=== PATIENT | male | born 1955 | race Caucasian/White ===

== ENCOUNTER 2018-05-12 11:12 | Inpatient (IN) ==
--- NOTE | 2018-05-12 11:41 | Emergency Department Note ---
Disposition Clinical Impression: Abdominal pain, Dilation of biliary tract Disposition: Admitted As Inpatient Condition: Good General Adult HPI - General Chief complaint: ED Abdominal Pain Stated complaint: abd pain Time Seen by Provider: 05/12/18 11:24 Source: patient Limitations: no limitations Nursing Notes Reviewed: Yes Vital Signs Reviewed: Yes - History of Present Illness Pain Scale: 0 - Related Data Home Medications Medication Instructions Recorded Confirmed Aspirin Enteric Coated [Aspirin EC] 81 mg PO DAILY 05/12/18 05/12/18 Atorvastatin Calcium [Lipitor] 20 mg PO HS 05/12/18 05/12/18 Garlic [Odorless Garlic] 1,250 mg PO DAILY 05/12/18 05/12/18 Lisinopril [Zestril] 5 mg PO DAILY 05/12/18 05/12/18 [place]-3/Dha/Epa/Fish Oil [Fish Oil 1 cap PO DAILY 05/12/18 05/12/18 1,000 mg Softgel] Tadalafil [Cialis] 5 mg PO DAILY 05/12/18 05/12/18 Tamsulosin [Flomax] 0.4 mg PO DAILY 05/12/18 05/12/18 Ubidecarenone [Coq10] 50 mg PO DAILY 05/12/18 05/12/18 Allergies Allergy/AdvReac Type Severity Reaction Status Date / Time No Known Allergies Allergy Verified 05/12/18 11:17 Past Medical History - Past Medical History Medical history: Reports: diabetes, hypertension Psychiatric history: Reports: no psych history - Social History Smoking Status: Former smoker Smokeless Tobacco Status: No Alcohol use: Reports: occasionally Drug use: Reports: none Physical Exam - General Limitations: no limitations General appearance: alert, in no apparent distress Course Vital Signs Temperature 98.1 F 05/12/18 11:16 Pulse Rate 80 05/12/18 11:16 Respiratory Rate 18 05/12/18 11:16 Blood Pressure 144/75 05/12/18 11:16 O2 Sat by Pulse Oximetry 96 05/12/18 11:16 Temperature 97.8 F 05/12/18 14:41 Pulse Rate 78 05/12/18 14:41 Respiratory Rate 16 05/12/18 14:41 Blood Pressure 130/71 05/12/18 14:41 O2 Sat by Pulse Oximetry 95 05/12/18 14:41 Oxygen Delivery Oxygen Delivery Room Air Medical Decision Making - MDM Narrative Medical decision making narrative: 1135 hrs.: Patient has an EKG showing a sinus rhythm with a rate of 82, QRS is 97, QTc is 422, no signs of acute ischemia and no ectopy no old EKG to compare this to. Abdomen/Pelvis CT 05/12/18 12:14 IMPRESSION: Bile duct dilatation beginning at the level of the head of the pancreas. Recommend correlation with any clinical findings of biliary obstruction. MRCP may be helpful for further characterization D/ / Sudhir Gray MD / Sudhir Gray MD Interpreting Provider: Sudhir Gray MD 1315 hrs. we will speak to gastroenterology about their preference for MRCP or ultrasound. And then hospitalist for admission. 1330 hrs.: Spoke with Dr. Cramer who is on for GI. He wanted an MR with contrast to rule out pancreatic mass. We will bring him into the hospital he will consult hospitalist admit. - Lab Data Result diagrams: 05/12/18 11:47 05/12/18 11:47 Lab Results 05/12/18 05/12/18 05/12/18 Range/Units 11:23 11:47 11:47 WBC 5.4 (4.3-11.1) K/mcL RBC 4.83 (4.19-5.50) M/mcL Hgb 13.4 (12.9-16.9) g/dL Hct 40.1 (37.5-50.1) % MCV 83.0 (83.0-100.0) fL MCH 27.7 L (28.0-33.3) pg MCHC 33.4 (31.6-35.5) g/dL RDW 13.9 (11.5-14.5) % Plt Count 193 (140-400) K/mcL MPV 9.9 (9.4-12.4) fL Immature Gran % 0.2 (0-4) % Seg Neutrophils % 58.1 % Lymphocytes % 25.0 % Monocytes % 12.3 % Eosinophils % 3.5 % Basophils % 0.9 % Neutrophils # 3.2 (1.6-8.9) K/mcL Lymphocytes # 1.4 (0.6-4.6) K/mcL Monocytes # 0.7 (0.0-1.3) K/mcL Eosinophils # 0.2 (0.0-0.6) K/mcL Basophils # 0.1 (0.0-0.2) K/mcL Sodium 135 L (136-145) mEq/L Potassium 3.5 (3.5-5.1) mEq/L Chloride 103 (98-107) mEq/L Carbon Dioxide 23 (23-29) mEq/L BUN 12 (8-23) mg/dL Creatinine 0.89 (0.70-1.30) mg/dL Est GFR ( Amer) > 60 (> 60) Est GFR (Non-Af Amer) > 60 (> 60) BUN/Creatinine Ratio 13 (6-26) Glucose 107 H (70-105) mg/dL Calculated Osmolality 280 (280-300) Calcium 9.2 (8.6-10.3) mg/dL Total Bilirubin 7.9 H (0.3-1.0) mg/dL AST 323 H (13-39) Units/L ALT > 500 H (7-52) Units/L Alkaline Phosphatase 124 H (34-104) Units/L Serum Total Protein 7.1 (6.4-8.9) g/dL Albumin 4.3 (3.5-5.7) g/dL Globulin 2.8 (2.4-3.5) g/dL Albumin/Globulin Ratio 1.5 (1.1-2.2) Lipase 199 H (11-82) Units/L Urine Color Yellow (Yellow) Urine Clarity Cloudy A (Clear) Urine pH 6.5 (5.0-8.0) pH Units Ur Specific [place] 1.005 L (1.010-1.025) Urine Protein Negative (Neg-Trace) mg/dL Urine Glucose (UA) Normal (Normal) mg/dL Urine Ketones Negative (Negative) mg/dL Urine Blood Negative (Negative) Urine Nitrite Negative (Negative) Urine Bilirubin Negative (Negative) Urine Urobilinogen Normal (Normal) mg/dL Ur Leukocyte Esterase Negative (Negative) Ur Culture Indicated? NO (NO) Ethyl Alcohol < 10 (Less than 10) mg/dL Hepatitis A IgM Ab (Nonreactive) Hep Bs Antigen (Nonreactive) Hep B Core IgM Ab (Nonreactive) Hepatitis C Ab Screen (Nonreactive) 05/12/18 Range/Units 11:47 WBC (4.3-11.1) K/mcL RBC (4.19-5.50) M/mcL Hgb (12.9-16.9) g/dL Hct (37.5-50.1) % MCV (83.0-100.0) fL MCH (28.0-33.3) pg MCHC (31.6-35.5) g/dL RDW (11.5-14.5) % Plt Count (140-400) K/mcL MPV (9.4-12.4) fL Immature Gran % (0-4) % Seg Neutrophils % % Lymphocytes % % Monocytes % % Eosinophils % % Basophils % % Neutrophils # (1.6-8.9) K/mcL Lymphocytes # (0.6-4.6) K/mcL Monocytes # (0.0-1.3) K/mcL Eosinophils # (0.0-0.6) K/mcL Basophils # (0.0-0.2) K/mcL Sodium (136-145) mEq/L Potassium (3.5-5.1) mEq/L Chloride (98-107) mEq/L Carbon Dioxide (23-29) mEq/L BUN (8-23) mg/dL Creatinine (0.70-1.30) mg/dL Est GFR ( Amer) (> 60) Est GFR (Non-Af Amer) (> 60) BUN/Creatinine Ratio (6-26) Glucose (70-105) mg/dL Calculated Osmolality (280-300) Calcium (8.6-10.3) mg/dL Total Bilirubin (0.3-1.0) mg/dL AST (13-39) Units/L ALT (7-52) Units/L Alkaline Phosphatase (34-104) Units/L Serum Total Protein (6.4-8.9) g/dL Albumin (3.5-5.7) g/dL Globulin (2.4-3.5) g/dL Albumin/Globulin Ratio (1.1-2.2) Lipase (11-82) Units/L Urine Color (Yellow) Urine Clarity (Clear) Urine pH (5.0-8.0) pH Units Ur Specific [place] (1.010-1.025) Urine Protein (Neg-Trace) mg/dL Urine Glucose (UA) (Normal) mg/dL Urine Ketones (Negative) mg/dL Urine Blood (Negative) Urine Nitrite (Negative) Urine Bilirubin (Negative) Urine Urobilinogen (Normal) mg/dL Ur Leukocyte Esterase (Negative) Ur Culture Indicated? (NO) Ethyl Alcohol (Less than 10) mg/dL Hepatitis A IgM Ab Nonreactive (Nonreactive) Hep Bs Antigen Nonreactive (Nonreactive) Hep B Core IgM Ab Nonreactive (Nonreactive) Hepatitis C Ab Screen Nonreactive (Nonreactive) Attestation Statement - Attestation Attestation: This documentation is done with the assistance of Dragon dictation. Despite efforts made to ensure accuracy, there may be inaccuracies in [facility] or spelling and typographical errors. I examined this patient and my medical decision-making was reviewed with the Resident Physician. I agree with the documented findings, disposition and treatment plan as described except to the extent set forth below. Patient was seen on arrival by Dr. Mensah and myself, I agree with her evaluation and management plan, I supervised the care the patient's stay. Patient comes in today complaining of dark-colored urine Off for Last Couple Weeks Possible Previous Icterus, and Epigastric Versus Right Upper Quadrant Pain. Denies Any Chest Pain at This Time. No History of Hepatitis or Gallbladder Disorders. [facility] Workup Set CT Abdomen Urinalysis EKG and Reassess. He Is in Agreement with Plan.
[2018-05-12 11:44] LABS: Bilirubin,Urine Negative (Negative); Blood,Urine Negative (Negative); Clarity,Urine Cloudy (Clear); Color,Urine Yellow (Yellow); Glucose,Urine (UA) Normal (Normal); Ketones,Urine Negative (Negative); Leukocyte Esterase,Urine Negative (Negative); Nitrite,Urine Negative (Negative); PH,Urine 6.5 pH Units (5.0-8.0); Protein,Urine Negative (Neg-Trace); Specific Gravity,Urine 1.005 (1.010-1.025); Urobilinogen,Urine Normal (Normal)
[2018-05-12 11:59] LABS: Basophils # 0.1 K/mcL (0.0-0.2); Basophils % 0.9 %; Eosinophils # 0.2 K/mcL (0.0-0.6); Eosinophils % 3.5 %; Hematocrit 40.1 % (37.5-50.1); Hemoglobin 13.4 g/dL (12.9-16.9); Immature Granulocytes % 0.2 % (0-4); Lymphocytes # 1.4 K/mcL (0.6-4.6); Mean Corpuscular HGB Conc 33.4 g/dL (31.6-35.5); Mean Corpuscular Hemoglobin 27.7 pg (28.0-33.3); Mean Platelet Volume 9.9 fL (9.4-12.4); Monocytes # 0.7 K/mcL (0.0-1.3); Monocytes % 12.3 %; Neutrophils # 3.2 K/mcL (1.6-8.9); Platelet Count 193 K/mcL (140-400); Red Blood Count 4.83 M/mcL (4.19-5.50); Red Cell Distribution Width 13.9 % (11.5-14.5); Segmented Neutrophils % 58.1 %
--- NOTE | 2018-05-12 12:21 | Emergency Department Note ---
Disposition Clinical Impression: Dilation of biliary tract Abdominal pain Qualifiers: Abdominal location: generalized Qualified Code(s): R10.84 - Generalized abdominal pain Disposition: Admitted As Inpatient Condition: Good Time of Disposition: 14:05 Abdominal Pain HPI - General Chief Complaint: ED Abdominal Pain Stated Complaint: abd pain Time Seen by Provider: 05/12/18 11:24 Source: patient Nursing Notes Reviewed: Yes Vital Signs Reviewed: Yes - History of Present Illness HPI Narrative: " Few weeks" history upper quadrant pain. Worse after eating. Intermittent. Now complaining of scleral jaundice. NO history of this before. Quality is an 8. No radiation. Across the top of his abdomen. Pain Scale: 0 - Related Data Home Medications Medication Instructions Recorded Confirmed Aspirin Enteric Coated [Aspirin EC] 81 mg PO DAILY 05/12/18 05/12/18 Atorvastatin Calcium [Lipitor] 20 mg PO HS 05/12/18 05/12/18 Garlic [Odorless Garlic] 1,250 mg PO DAILY 05/12/18 05/12/18 Lisinopril [Zestril] 5 mg PO DAILY 05/12/18 05/12/18 [place]-3/Dha/Epa/Fish Oil [Fish Oil 1 cap PO DAILY 05/12/18 05/12/18 1,000 mg Softgel] Tadalafil [Cialis] 5 mg PO DAILY 05/12/18 05/12/18 Tamsulosin [Flomax] 0.4 mg PO DAILY 05/12/18 05/12/18 Ubidecarenone [Coq10] 50 mg PO DAILY 05/12/18 05/12/18 Allergies Allergy/AdvReac Type Severity Reaction Status Date / Time No Known Allergies Allergy Verified 05/12/18 11:17 All systems ED: reviewed and negative except as stated. Constitutional: Denies: fever, chills Cardiovascular: Denies: chest pain, syncope Respiratory: Denies: cough, dyspnea Gastrointestinal: Reports: abdominal pain (ACross top of his abdomen.), nausea ( Occasional). Denies: vomiting, diarrhea, hematemesis, melena, hematochezia Genitourinary: Reports: other (dark colored urine one week ago). Denies: urgency, dysuria, frequency, hematuria Musculoskeletal: Reports: back pain (one week ago. NOt at this time. ). Denies : neck pain Integumentary: Reports: other (scleral jaundice). Denies: rash Abdominal Pain PMH - Past Medical History Medical history: Reports: diabetes, hypertension Male Surgical History: Reports: appendectomy, other Psychiatric history: Reports: no psych history - Social History Smoking status: Former smoker Alcohol use: Reports: occasionally Drug use: Reports: none Physical Exam - General Limitations: no limitations General appearance: alert, in no apparent distress - Head Head exam: atraumatic, normocephalic, normal inspection - Eye Eye exam: Present: normal appearance, PERRL, EOMI, scleral icterus - ENT ENT exam: normal exam, normal oropharynx, mucous membranes moist - Neck Neck exam: Present: normal inspection, full ROM, trachea midline - Chest Chest inspection: Present: normal inspection, symmetric chest wall rise - Respiratory Respiratory exam: Present: normal lung sounds bilaterally. Absent: respiratory distress - Cardiovascular Cardiovascular exam: Present: regular rate, normal rhythm, normal heart sounds - Abdominal Exam Abdominal exam: Present: soft, Non-Tender. Absent: distention, guarding, rebound, rigidity, organomegaly - Extremities Exam Extremities exam: Present: normal inspection, full ROM, normal capillary refill. Absent: tenderness, pedal edema - Back Exam Back exam: Present: normal inspection, full ROM. Absent: tenderness - Neurological Exam Neurological exam: Present: alert, oriented X3 - Psychiatric Psychiatric exam: Present: normal affect, normal mood - Skin Skin exam: Present: warm, dry, intact, normal color. Absent: rash, cyanosis Course Course Narrative: Jaundiced male patient presenting to the emergency department complaining of a "few weeks" history of upper abdominal discomfort. Worse after he eats. Does have a history of diabetes. No history of pancreatitis. Did have a history of appendectomy when he was younger and no other abdominal surgeries. Said the pain is a cramping sensation in his upper abdomen. Does have associated nausea occasionally. None at this time. Also has belching where a foul taste and burning sensation going up his esophagus. He is resting comfortably in bed and does not appear to be in distress. His lung sounds are clear heart tones are normal. He denies any fevers or chills. He did present to urgent care today with the jaundice and was told to come to the emergency department. He has no history of hepatitis IV drug use and is not an alcoholic. He does report 2-3 beers occasionally at the most 3-4 times a week. He has no history of cancers. No history of liver failure. Of note he did not eat at any of the restaurants are currently undergoing suspicion for hepatitis a. We will get a basic lab workup on patient in the CT of patient's abdomen at this time. He does report a recent history about a week ago of bilateral CVA pain with associated Tea colored urine. He denies any abdominal pain at this time is refusing pain medication. - Reevaluation(s) Reevaluation #1: Patient CT showed some bile duct dilation to the pancreas. His liver enzymes as well as his lipase and bilirubin are also elevated. He has no signs of UTI. I spoke with Dr Horn about the patient. He discussed that he may order an MRI with and without contrast all the patient is admitted to the hospital but he requests patient be admitted to the hospitalist. We will facilitate this. Time: 13:29 - Consultations Consultation #1: I spoke with Dr Horn. He states that he will see the Pt in the hospital. He requested a c19 level and hepatitis panel. Time: 13:28 Consultation #2: Dr bond accepted Pt in stable condition. Time: 13:54 Vital Signs Temperature 98.1 F 05/12/18 11:16 Pulse Rate 80 05/12/18 11:16 Respiratory Rate 18 05/12/18 11:16 Blood Pressure 144/75 05/12/18 11:16 O2 Sat by Pulse Oximetry 96 05/12/18 11:16 Temperature 98.1 F 05/12/18 11:27 Pulse Rate 74 05/12/18 13:08 Respiratory Rate 12 05/12/18 13:08 Blood Pressure 119/63 05/12/18 13:08 O2 Sat by Pulse Oximetry 96 05/12/18 13:08 Oxygen Delivery Oxygen Delivery Room Air Abdominal Pain - Medical Records Medical records reviewed: Yes I reviewed the patient's medical records. - Lab Data Lab results reviewed: Yes I reviewed the patient's lab results. Result diagrams: 05/12/18 11:47 05/12/18 11:47 Lab Results 05/12/18 05/12/18 05/12/18 Range/Units 11:23 11:47 11:47 WBC 5.4 (4.3-11.1) K/mcL RBC 4.83 (4.19-5.50) M/mcL Hgb 13.4 (12.9-16.9) g/dL Hct 40.1 (37.5-50.1) % MCV 83.0 (83.0-100.0) fL MCH 27.7 L (28.0-33.3) pg MCHC 33.4 (31.6-35.5) g/dL RDW 13.9 (11.5-14.5) % Plt Count 193 (140-400) K/mcL MPV 9.9 (9.4-12.4) fL Immature Gran % 0.2 (0-4) % Seg Neutrophils % 58.1 % Lymphocytes % 25.0 % Monocytes % 12.3 % Eosinophils % 3.5 % Basophils % 0.9 % Neutrophils # 3.2 (1.6-8.9) K/mcL Lymphocytes # 1.4 (0.6-4.6) K/mcL Monocytes # 0.7 (0.0-1.3) K/mcL Eosinophils # 0.2 (0.0-0.6) K/mcL Basophils # 0.1 (0.0-0.2) K/mcL Sodium 135 L (136-145) mEq/L Potassium 3.5 (3.5-5.1) mEq/L Chloride 103 (98-107) mEq/L Carbon Dioxide 23 (23-29) mEq/L BUN 12 (8-23) mg/dL Creatinine 0.89 (0.70-1.30) mg/dL Est GFR ( Amer) > 60 (> 60) Est GFR (Non-Af Amer) > 60 (> 60) BUN/Creatinine Ratio 13 (6-26) Glucose 107 H (70-105) mg/dL Calculated Osmolality 280 (280-300) Calcium 9.2 (8.6-10.3) mg/dL Total Bilirubin 7.9 H (0.3-1.0) mg/dL AST 323 H (13-39) Units/L ALT > 500 H (7-52) Units/L Alkaline Phosphatase 124 H (34-104) Units/L Serum Total Protein 7.1 (6.4-8.9) g/dL Albumin 4.3 (3.5-5.7) g/dL Globulin 2.8 (2.4-3.5) g/dL Albumin/Globulin Ratio 1.5 (1.1-2.2) Lipase 199 H (11-82) Units/L Urine Color Yellow (Yellow) Urine Clarity Cloudy A (Clear) Urine pH 6.5 (5.0-8.0) pH Units Ur Specific [place] 1.005 L (1.010-1.025) Urine Protein Negative (Neg-Trace) mg/dL Urine Glucose (UA) Normal (Normal) mg/dL Urine Ketones Negative (Negative) mg/dL Urine Blood Negative (Negative) Urine Nitrite Negative (Negative) Urine Bilirubin Negative (Negative) Urine Urobilinogen Normal (Normal) mg/dL Ur Leukocyte Esterase Negative (Negative) Ur Culture Indicated? NO (NO) Ethyl Alcohol < 10 (Less than 10) mg/dL - Radiology Data Radiology results reviewed: Yes I reviewed the patient's radiology results. Abdomen/Pelvis CT 05/12/18 12:14 IMPRESSION: Bile duct dilatation beginning at the level of the head of the pancreas. Recommend correlation with any clinical findings of biliary obstruction. MRCP may be helpful for further characterization D/ / Sudhir Gray MD / Sudhir Gray MD Interpreting Provider: Sudhir Gray MD
[2018-05-12 12:27] LABS: Alanine Aminotransferase > 500 Units/L (7-52); Albumin 4.3 g/dL (3.5-5.7); Albumin/Globulin Ratio 1.5 (1.1-2.2); Alkaline Phosphatase 124 Units/L (34-104); Aspartate Amino Transferase 323 Units/L (13-39); BUN/Creatinine Ratio 13 (6-26); Bilirubin,Total 7.9 mg/dL (0.3-1.0); Blood Urea Nitrogen 12 mg/dL (8-23); Calcium 9.2 mg/dL (8.6-10.3); Carbon Dioxide 23 mEq/L (23-29); Chloride 103 mEq/L (98-107); Ethanol < 10 mg/dL (Less than 10); Globulin 2.8 g/dL (2.4-3.5); Glucose 107 mg/dL (70-105); Lipase 199 Units/L (11-82); Osmolality,Calculated 280 (280-300); Potassium 3.5 mEq/L (3.5-5.1); Sodium 135 mEq/L (136-145); Total Protein 7.1 g/dL (6.4-8.9); eGFR For African Americans > 60 (> 60); eGFR For Non-African Americans > 60 (> 60)
[2018-05-12] MEDS ORDERED: Gadolinium Contrast Agent (WT Based) IV PRN (14:26)
[2018-05-12 14:51] LABS: Hepatitis A Antibody IgM Nonreactive (Nonreactive); Hepatitis B Core IgM Nonreactive (Nonreactive); Hepatitis B Surface Antigen Nonreactive (Nonreactive); Hepatitis C Virus Antibody Nonreactive (Nonreactive)
--- NOTE | 2018-05-12 15:32 | Internal Med History&Physical ---
Date of Encounter: 05/12/18 Time of Encounter: 14:46 Internal Medicine - H&P: HPI Admitted From: Emergency Dept Plans for Post Hospital Care: Home History of present illness: Mr. Woodson is a 62 year old male Diet controlled diabetes, hyperlipidemia, and HTN. Pt states about 3 weeks ago he developed R flank pain. Reports that pain spontaneously resolved. Since then after eating he has developed bloating, abdominal discomfort, and acid reflux. States the next day he noticed is urine turned a tea color so he drank lots of water. His urine became light yellow but was unusually bright. States he also developed diarrhea and stools changed from brown to adrian. Denies unintentional weight loss but states he had not really eaten due to abdominal discomfort so may have lost some weight. Still has his gall bladder and denies prior history of gallstones or liver disease he is aware. Drinks on occasion but denies heavy ETOH use. In ED CBC reviewed. Na 135, K 3.5, BUN 12, Cr 0.89. Glucose 107. Total bili 7.9, AST 323, ALT> 500, Alk phos 124. Urine analysis reviewed. ETOH <10. Hepatitis panel negative. CT of abdomen and pelvis IMPRESSION: Bile duct dilatation beginning at the level of the head of the pancreas. Recommend correlation with any clinical findings of biliary obstruction. MRCP may be helpful for further characterization Past Med Surg Social Fam HX - Past Medical History Medical history: diabetes, hypertension Additional medical history: enlarged prostate Psychiatric history: no psych history - Past Surgical History Additional surgical history: carpal tunnel bilateral - Social History Smoking Status: Former smoker Smokeless Tobacco Status: No Alcohol use: occasionally Drug use: none Internal Medicine - H&P: Meds Aspirin Enteric Coated [Aspirin EC] 81 mg PO DAILY 05/12/18 [History] Atorvastatin Calcium [Lipitor] 20 mg PO HS 05/12/18 [History] Garlic [Odorless Garlic] 1,250 mg PO DAILY 05/12/18 [History] Lisinopril [Zestril] 5 mg PO DAILY 05/12/18 [History] [place]-3/Dha/Epa/Fish Oil [Fish Oil 1,000 mg Softgel] 1 cap PO DAILY 05/12/18 [ History] Tadalafil [Cialis] 5 mg PO DAILY 05/12/18 [History] Tamsulosin [Flomax] 0.4 mg PO DAILY 05/12/18 [History] Ubidecarenone [Coq10] 50 mg PO DAILY 05/12/18 [History] 3 Allergy/AdvReac Type Severity Reaction Status Date / Time No Known Allergies Allergy Verified 05/12/18 11:17 All Systems PM: A 10-system review of systems was performed and is negative for pertinent findings except as documented above in the HPI. - Constitutional Vitals: Temp Pulse Resp BP Pulse Ox 97.8 F 78 16 130/71 95 05/12/18 14:41 05/12/18 14:41 05/12/18 14:41 05/12/18 14:41 05/12/18 14:41 General appearance: Present: A&O X 3, no acute distress - Head Head exam: Present: atraumatic, normocephalic - Eye Eye exam: Present: PERRL, scleral icterus, conjuntiva pink Pupils: Present: PERRL - Neck Neck exam general surgery: Present: supple, trachea midline. Absent: lymphadenopathy - Respiratory Respiratory exam: Present: CTAB. Absent: accessory muscle use, rales, rhonchi, wheezes - Cardiovascular Cardiovascular exam: Present: RRR, +S1, +S2. Absent: diastolic murmur, gallop, rubs, systolic murmur - GI/Abdominal GI/Abdominal exam: Present: normal bowel sounds, soft, no peritoneal signs. Absent: distended, tenderness - Extremities Exam Extremities exam: Present: warm, radial pulses palpable and symmetrical. Absent : calf tenderness, cyanotic, pedal edema - Neurological Exam Neurological exam: Present: CN II-XII intact, oriented X3, no focal deficits. Absent: pronater drift, facial droop, speech deficit - Skin Skin exam: Present: dry, intact Additional comments: jaundice Internal Med - H&P Results - Labs CBC & Chem 7: 05/12/18 11:47 05/12/18 11:47 - Assessment and plan (1) Common bile duct dilatation Current Visit: Yes Status: Acute Assessment and plan: ED discussed case with GI and consulted. MRI ordered and pending. (2) Elevated liver enzymes Current Visit: Yes Status: Acute Assessment and plan: Will monitor daily. GI on board. Will check abdominal US. Hepatitis panel negative. (3) Diabetes mellitus type II, controlled Current Visit: Yes Status: Acute Assessment and plan: Will monitor glucose and order prn SSI Qualifiers: Qualified Code(s): E11.9 - Type 2 diabetes mellitus without complications (4) Abdominal pain Current Visit: Yes Status: Acute Assessment and plan: Will write for prn pain control. Pt denies pain at this time. NPO for now. Qualifiers: Abdominal location: generalized Qualified Code(s): R10.84 - Generalized abdominal pain - Time Spent With Patient Total time spent is greater than 50% in coordination of care (as documented) at patient's floor/unit and/or counseling patient: 25 - 35 minutes
[2018-05-12] MEDS ORDERED: Naloxone 0.4 MG/ML INJ IVP PRN (16:12)
[2018-05-12] MEDS ORDERED: *HR* OxyCODONE Immed Rel 5 MG TABLET PO PRN (16:21)
[2018-05-12] MEDS ORDERED: Ondansetron 4 MG/2 ML VIAL IVP PRN (16:21)
[2018-05-12] MEDS ORDERED: Dextrose Gel 15 GM/37.5 ML TUBE PO PRN ×2 (16:23)
[2018-05-12] MEDS ORDERED: D5% in Water 1,000 ML IVC PRN (16:23)
[2018-05-12] MEDS ORDERED: *HR* Dextrose 50 % in Water (Syg) 50 ML SYRINGE IVP PRN (16:23)
[2018-05-12 18:51] LABS: Estimated Average Glucose 128 mg/dl; Hemoglobin A1C 6.1 %
[2018-05-12] MEDS: Insulin LISPRO 300 UNITS/3 ML VIAL SQ SCH (18:58)
[2018-05-12] MEDS: 0.9 % Sodium Chloride 1,000 ML IVC SCH (21:50)
[2018-05-13] MEDS: Insulin LISPRO 300 UNITS/3 ML VIAL SQ SCH ×4 (00:06→18:36)
[2018-05-13] MEDS: *HR* Enoxaparin 40 MG/0.4 ML SYRINGE SQ SCH (05:27)
[2018-05-13 07:48] LABS: Alanine Aminotransferase > 500 Units/L (7-52); Albumin/Globulin Ratio 1.4 (1.1-2.2); Alkaline Phosphatase 106 Units/L (34-104); Aspartate Amino Transferase 336 Units/L (13-39); BUN/Creatinine Ratio 13 (6-26); Bilirubin,Total 7.7 mg/dL (0.3-1.0); Blood Urea Nitrogen 10 mg/dL (8-23); Calcium 9.2 mg/dL (8.6-10.3); Carbon Dioxide 21 mEq/L (23-29); Chloride 105 mEq/L (98-107); Chol/HDL Ratio 3.2 (0-4.9); Cholesterol 155 mg/dL (< 200); Globulin 2.8 g/dL (2.4-3.5); Glucose 71 mg/dL (70-105); HDL Cholesterol 48 mg/dL (40-59); LDL Cholesterol,Calculated 85 mg/dL (0-99); Osmolality,Calculated 286 (280-300); Potassium 3.7 mEq/L (3.5-5.1); Sodium 139 mEq/L (136-145); Total Protein 6.8 g/dL (6.4-8.9); Triglycerides 110 mg/dL (< 150); eGFR For African Americans > 60 (> 60); eGFR For Non-African Americans > 60 (> 60)
[2018-05-13] MEDS: 0.9 % Sodium Chloride 1,000 ML IVC SCH (07:50)
[2018-05-13] MEDS ORDERED: (Omega-3/Dha/Epa/Fish Oil [Fish Oil 1,000 Mg Softgel]) PO SCH (09:00)
[2018-05-13] MEDS ORDERED: (Ubidecarenone [Coq10] 50 MG) PO SCH (09:00)
[2018-05-13] MEDS ORDERED: GARLIC 1250 MG PO SCH (09:00)
[2018-05-13] MEDS ORDERED: (Tadalafil [Cialis] 5 MG) PO SCH (09:00)
[2018-05-13] MEDS: Aspirin Enteric Coated 81 MG Tablet PO SCH (10:13)
--- NOTE | 2018-05-13 11:37 | Gastroenterology Consult Note ---
<CampbellLauro Joseph - Last Filed: 05/13/18 11:35> Date of Encounter: 05/13/18 Time of Encounter: 10:20 - Assessment and plan (1) Common bile duct dilatation Current Visit: Yes Status: Acute Assessment and plan: CT A/P shows bile duct dilatation (1.4 cm) beginning at the level of the head of the pancreas. MRI shows mild intra and extrahepatic biliary ductal dilation to the level of the pancreatic head where there is a 2.5 cm group of cystic lesions with communication with the duct of Wirsung. There is an adjacent questionable area of solid hypoenhancing pancreas. This could represent multiple side branch IPMNs or a serous cystadenoma, though findings remain suspicious for small adenocarcinoma causing mass-effect on the ducts. Keep patient NPO, plan for EUS and ERCP today. (2) Elevated liver enzymes Current Visit: Yes Status: Acute Assessment and plan: Secondary to biliary duct dilation. On admission TB 7.9, AST 323, ALT >500, and alk phos 124. Today, TB 7.7, AST 336, ALT >500, alk phos 106. Continue to monitor hepatic panel daily. (3) Abdominal pain Current Visit: Yes Status: Acute Qualifiers: Abdominal location: generalized Qualified Code(s): R10.84 - Generalized abdominal pain - Time Spent With Patient Total time spent is greater than 50% in coordination of care (as documented) at patient's floor/unit and/or counseling patient: GI History of Present Illness - Data of Consult Patient: new to practice Consult date: 05/13/18 Requesting Physician: Kevin Garcia - Consult Narrative Reason for consult: Biliary duct dilation History of present illness: Mr. Woodson is a 62 year old male with PMHx of DM, HLD, and HTN who presented to the ED with abdominal pain for the pst few weeks, which worsens with eating. He denies history of hepatitis, IV drug use, but does drink alcohol 3-4 times per week. Pt reports tea colored urine that changed to bright yellow, he also reports his stools changed from brown to adrian. On admission TB 7.9, AST 323, ALT >500, and alk phos 124. CT A/P shows bile duct dilatation (1.4 cm) beginning at the level of the head of the pancreas. Hepatitis profile was negative. Procedures: None NSAIDs: ASA Anticoagulation: None Past Med Surg Social Fam HX - Past Medical History Medical history: diabetes, hypertension Additional medical history: enlarged prostate Psychiatric history: no psych history - Past Surgical History Additional surgical history: carpal tunnel bilateral - Social History Smoking Status: Former smoker Smokeless Tobacco Status: No Alcohol use: occasionally Drug use: none - Gastrointestinal Gastrointestinal: Present: as per HPI - Constitutional Constitutional: as per HPI - EENT Eyes: as per HPI Ears: Present: as per HPI Nose, mouth and throat: Present: as per HPI - Cardiovascular Cardiovascular ROS: Present: as per HPI - Respiratory Respiratory IM: Present: as per HPI - Genitourinary Genitourinary: Absent: change in color, Urinary frequency - Neurological ROS Neurological GI: Present: as per HPI - Hematologic/Lymphatic Hematologic/Lymphatic pediatric: Present: as per HPI - Musculoskeletal Musculoskeletal ROS GI: Present: as per HPI - Integumentary Integumentary GI: Present: as per HPI - Psychiatric ROS Psychiatric GI: Present: as per HPI - Endocrine Endocrine IM: Present: as per HPI - Constitutional Vitals: Temp Pulse Resp BP Pulse Ox 98.4 F 90 16 133/68 97 05/13/18 06:48 05/13/18 06:48 05/13/18 06:48 05/13/18 06:48 05/13/18 06:48 General appearance: Present: cooperative, A&O X 3, no acute distress, answers questions appropriately - Head Head exam: Present: atraumatic, normocephalic - Eye Eye exam: Present: scleral icterus - ENT ENT exam: Present: mucous membranes dry - Neck Neck exam general surgery: Present: normal inspection, trachea midline - Respiratory Respiratory exam: Present: CTAB. Absent: rales, rhonchi - Cardiovascular Cardiovascular exam: Present: RRR, +S1, +S2 - GI/Abdominal GI/Abdominal exam: Present: soft, tenderness (epigastric), no peritoneal signs. Absent: distended, firm, guarding - Rectal Rectal exam: Present: deferred - Extremities Exam Extremities exam: Present: warm - Neurological Exam Neurological exam: Present: no focal deficits - Psychiatric Psychiatric exam: Present: normal affect, normal mood - Skin Skin exam: Present: dry, intact, warm. Absent: normal color Additional comments: Jaundice Results - Labs CBC & Chem 7: 05/12/18 11:47 05/13/18 05:37 Labs: Last Result Calcium 9.2 mg/dL (8.6-10.3) 05/13/18 05:37 Triglycerides 110 mg/dL (< 150) 05/13/18 05:37 Entire Visit Hgb 13.4 g/dL (12.9-16.9) 05/12/18 11:47 Hct 40.1 % (37.5-50.1) 05/12/18 11:47 Total Bilirubin 7.7 mg/dL (0.3-1.0) H 05/13/18 05:37 AST 336 Units/L (13-39) H 05/13/18 05:37 ALT > 500 Units/L (7-52) H 05/13/18 05:37 Lipase 199 Units/L (11-82) H 05/12/18 11:47 - Impressions Impressions Abdomen MRI 05/12/18 14:26 IMPRESSION: Mild intra and extrahepatic biliary ductal dilation to the level of the pancreatic head where there is a 2.5 cm group of cystic lesions with communication with the duct of [place]. There is an adjacent questionable area of solid hypoenhancing pancreas. This could represent multiple side branch IPMNs or a serous cystadenoma, though findings remain suspicious for small adenocarcinoma causing mass-effect on the ducts. This lesion should be further evaluated with endoscopic ultrasound. Incidentally noted pancreatic divisum. D/ / Hank Merino MD / Hank Merino MD Interpreting Provider: Hank Merino MD Foreign Body Localization X-Ray 05/12/18 16:38 IMPRESSION: No evidence of metallic foreign body within the orbits. D/ / rFanck Shelton / Franck Shelton Interpreting Provider: Franck Shelton Consult Discharge Plan - Plan Referrals: Pantera Salas MD [Primary Care Provider] - <Marleny Horn - Last Filed: 05/13/18 13:28> Date of Encounter: 05/13/18 Time of Encounter: 11:15 - Time Spent With Patient Total time spent is greater than 50% in coordination of care (as documented) at patient's floor/unit and/or counseling patient: GI History of Present Illness - Data of Consult Requesting Physician: Kevin Garcia - Consult Narrative History of present illness: Mr. Woodson is a 62 year old male - Constitutional Vitals: Temp Pulse Resp BP Pulse Ox 98 F 88 16 124/63 97 05/13/18 11:35 05/13/18 11:35 05/13/18 11:35 05/13/18 11:35 05/13/18 11:35 Results - Labs CBC & Chem 7: 05/12/18 11:47 05/13/18 05:37 Labs: Last Result Calcium 9.2 mg/dL (8.6-10.3) 05/13/18 05:37 Triglycerides 110 mg/dL (< 150) 05/13/18 05:37 Entire Visit Hgb 13.4 g/dL (12.9-16.9) 05/12/18 11:47 Hct 40.1 % (37.5-50.1) 05/12/18 11:47 Total Bilirubin 7.7 mg/dL (0.3-1.0) H 05/13/18 05:37 AST 336 Units/L (13-39) H 05/13/18 05:37 ALT > 500 Units/L (7-52) H 05/13/18 05:37 Lipase 199 Units/L (11-82) H 05/12/18 11:47 - Impressions Impressions Abdomen MRI 05/12/18 14:26 IMPRESSION: Mild intra and extrahepatic biliary ductal dilation to the level of the pancreatic head where there is a 2.5 cm group of cystic lesions with communication with the duct of [place]irs[place]. There is an adjacent questionable area of solid hypoenhancing pancreas. This could represent multiple side branch IPMNs or a serous cystadenoma, though findings remain suspicious for small adenocarcinoma causing mass-effect on the ducts. This lesion should be further evaluated with endoscopic ultrasound. Incidentally noted pancreatic divisum. D/ / Hank Merino MD / Hank Merino MD Interpreting Provider: Hank Merino MD Foreign Body Localization X-Ray 05/12/18 16:38 IMPRESSION: No evidence of metallic foreign body within the orbits. D/ / Franck Shelton / Franck Shelton Interpreting Provider: Franck Shelton - Attending Attestation I have personally performed a face to face evaluation on this patient. I have reviewed and agree with the care plan. History and Exam by me shows: Patient with a cystic-appearing lesion in the head of pancreas that causing obstruction of the common bile duct with jaundice. Recommendation: EUS with possible FNA and ERCP procedures including risks discussed with the patient
[2018-05-13] MEDS ORDERED: D5% in 0.45% NACL 1,000 ML IVC SCH (11:45)
--- NOTE | 2018-05-13 11:53 | Anesthesia Evaluation PreOp ---
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 Other Medical History: Diabetes Type II (diet controlled), Other (BPH) Anesthesia History: No Prior Anesthetic Complications, Past Anesthesia Alcohol Use: occasionally Drug use: none Medications and Allergies Aspirin Enteric Coated [Aspirin EC] 81 mg PO DAILY 05/12/18 [History] Atorvastatin Calcium [Lipitor] 20 mg PO HS 05/12/18 [History] Garlic [Odorless Garlic] 1,250 mg PO DAILY 05/12/18 [History] Lisinopril [Zestril] 5 mg PO DAILY 05/12/18 [History] Ada-3/Dha/Epa/Fish Oil [Fish Oil 1,000 mg Softgel] 1 cap PO DAILY 05/12/18 [ History] Tadalafil [Cialis] 5 mg PO DAILY 05/12/18 [History] Tamsulosin [Flomax] 0.4 mg PO DAILY 05/12/18 [History] Ubidecarenone [Coq10] 50 mg PO DAILY 05/12/18 [History] 3 Allergy/AdvReac Type Severity Reaction Status Date / Time No Known Allergies Allergy Verified 05/12/18 11:17 - Meds/Allergy Pre-op Review Medications Reviewed: Yes Allergies Reviewed: Yes Beta Blockers on Current Med List: No Anesthesia Results - Labs 05/12/18 11:47 05/13/18 05:37 Anesthesia Exam Vital Signs/O2 Sat/Glucose, Most Recent Temp Pulse Resp BP Pulse Ox 98 F 88 16 124/63 97 05/13/18 11:35 05/13/18 11:35 05/13/18 11:35 05/13/18 11:35 05/13/18 11:35 Blood Glucose* 66 Height: 5'8''/1.73m Weight: 165 lbs/75.2 kg NPO (# of Hours): 8 Pain Scale: 0 Pain Scale Used: Numeric (1 - 10) - HEENT Pupil (Motor): EOMI Mallampati: II Teeth: Normal, Missing Denture Type: Upper: Complete Oral Opening: Greater than 3 - WET MILLING WHEEL OPERATOR LOC: Oriented WET MILLING WHEEL OPERATOR Motor: Normal RUE, Normal LUE, Normal RLE, Normal LLE, Normal Face WET MILLING WHEEL OPERATOR Sensory: Normal: RUE, LUE, RLE, LLE, Face - Cardiac Rhythm: Regular Murmur: None - Pulmonary Breath Sounds: bilateral Clear Respiratory Effort: Symmetrical Anesthesia Assess/Plan ASA Score: 2 Modified Calder Scale for Level of Consciousness: Cooperative, oriented, and tranquil Anesthetic Plan: General Monitoring Plan: Standard Monitors Recovery Plan: PACU
[2018-05-13] MEDS ORDERED: *HR* Propofol 200 MG/20 ML VIAL IVP ONE (12:23)
[2018-05-13] MEDS ORDERED: *HR* FentaNYL (PF) 100 MCG/2 ML VIAL ONE (12:23)
[2018-05-13] MEDS ORDERED: Lidocaine -MPF 2% 2 ML VIAL ONE (12:24)
[2018-05-13] MEDS ORDERED: *HR* Succinylcholine 200 MG/10 ML VIAL IVP ONE (12:24)
[2018-05-13] MEDS ORDERED: Lidocaine -MPF 4% 5 ML AMPUL ONE (12:28)
[2018-05-13] MEDS ORDERED: Ondansetron 4 MG/2 ML VIAL ONE (12:47)
[2018-05-13] MEDS ORDERED: Dexamethasone 4 MG/ML VIAL ONE (12:47)
[2018-05-13] MEDS ORDERED: EPHEDrine 50 MG/ML VIAL ONE (13:13)
--- NOTE | 2018-05-13 13:23 | Internal Med Progress Note ---
Date of Encounter: 05/13/18 Time of Encounter: 01:20 - Assessment and plan (1) Common bile duct dilatation Current Visit: Yes Status: Acute Assessment and plan: CT A/P shows bile duct dilatation (1.4 cm) beginning at the level of the head of the pancreas. MRI shows mild intra and extrahepatic biliary ductal dilation to the level of the pancreatic head where there is a 2.5 cm group of cystic lesions with communication with the duct of [place]. There is an adjacent questionable area of solid hypoenhancing pancreas. This could represent multiple side branch IPMNs or a serous cystadenoma, though findings remain suspicious for small adenocarcinoma causing mass-effect on the ducts. Keep patient NPO, plan for EUS and ERCP today. (2) Elevated liver enzymes Current Visit: Yes Status: Acute Assessment and plan: supportive care. Monitor daily LFTs (3) Diabetes mellitus type II, controlled Current Visit: Yes Status: Acute Assessment and plan: Continue insulin, monitor fingersticks Qualifiers: Diabetes mellitus oysterman insulin use: unspecified residential insulin use status Qualified Code(s): E11.9 - Type 2 diabetes mellitus without complications (4) Abdominal pain Current Visit: Yes Status: Acute Assessment and plan: Pain control as needed Qualifiers: Abdominal location: generalized Qualified Code(s): R10.84 - Generalized abdominal pain (5) DVT prophylaxis Current Visit: Yes Status: Acute Assessment and plan: Lovenox - Time Spent With Patient Total time spent is greater than 50% in coordination of care (as documented) at patient's floor/unit and/or counseling patient: - Subjective Interval history: No acute events overnight - Constitutional Vitals: Temp Pulse Resp BP Pulse Ox 98 F 88 16 124/63 97 05/13/18 11:35 05/13/18 11:35 05/13/18 11:35 05/13/18 11:35 05/13/18 11:35 General appearance: Present: A&O X 3, no acute distress - Head Head exam: Present: atraumatic, normocephalic - Eye Eye exam: Present: PERRL, conjuntiva pink, sclera anicteric Pupils: Present: PERRL - Neck Neck exam general surgery: Present: supple, trachea midline. Absent: lymphadenopathy - Respiratory Respiratory exam: Present: CTAB. Absent: accessory muscle use, rales, rhonchi, wheezes - Cardiovascular Cardiovascular exam: Present: RRR, +S1, +S2. Absent: diastolic murmur, gallop, rubs, systolic murmur - GI/Abdominal GI/Abdominal exam: Present: normal bowel sounds, soft, no peritoneal signs. Absent: distended, tenderness - Extremities Exam Extremities exam: Present: warm, radial pulses palpable and symmetrical. Absent : calf tenderness, cyanotic, pedal edema - Neurological Exam Neurological exam: Present: CN II-XII intact, oriented X3, no focal deficits. Absent: pronater drift, facial droop, speech deficit - Skin Skin exam: Present: dry, intact Internal Medicine: Result - Labs CBC & Chem 7: 05/12/18 11:47 05/13/18 05:37 Labs: BMP 05/13/18 05:37 Sodium 139 Potassium 3.7 Chloride 105 Carbon Dioxide 21 L BUN 10 Creatinine 0.79 Glucose 71 Calcium 9.2 Liver Function 05/13/18 Range/Units 05:37 Total Bilirubin 7.7 H (0.3-1.0) mg/dL AST 336 H (13-39) Units/L ALT > 500 H (7-52) Units/L Alkaline Phosphatase 106 H (34-104) Units/L Albumin 4.0 (3.5-5.7) g/dL - Impressions Impressions Abdomen MRI 05/12/18 14:26 IMPRESSION: Mild intra and extrahepatic biliary ductal dilation to the level of the pancreatic head where there is a 2.5 cm group of cystic lesions with communication with the duct of [place]. There is an adjacent questionable area of solid hypoenhancing pancreas. This could represent multiple side branch IPMNs or a serous cystadenoma, though findings remain suspicious for small adenocarcinoma causing mass-effect on the ducts. This lesion should be further evaluated with endoscopic ultrasound. Incidentally noted pancreatic divisum. D/ / Hank Merino MD / Hank Merino MD Interpreting Provider: Hank Merino MD Foreign Body Localization X-Ray 05/12/18 16:38 IMPRESSION: No evidence of metallic foreign body within the orbits. D/ / Franck Shelton / Franck Shelton Interpreting Provider: Franck Shelton Consult Discharge Plan - Plan Referrals: Pnatera Salas MD [Primary Care Provider] -
[2018-05-13] MEDS ORDERED: Ondansetron 4 MG/2 ML VIAL IVP ONE (13:58)
[2018-05-13] MEDS ORDERED: *HR* Promethazine 25 MG/ML VIAL IVP PRN (13:58)
[2018-05-13] MEDS ORDERED: Indomethacin 50 MG SUPP.RECT RC ONE (15:22)
--- NOTE | 2018-05-13 16:19 | Anesthesia Evaluation Post Op ---
Date of Encounter: 05/13/18 Time of Encounter: 16:18 - Vital Signs Vital Signs: Vital Signs/O2 Sat, Most Current Temp Pulse Resp BP Pulse Ox 97.6 F 82 16 132/73 95 05/13/18 16:09 05/13/18 16:09 05/13/18 16:09 05/13/18 16:09 05/13/18 16:09 - Lungs Lungs: Clear Ascult./Percussion - Airway Airway: Non-obstructed - Cardiovascular Regular Rate - Mental Status Mental Status: Alert & Oriented, Answers Appropriately - Pain Pain Scale: 0 Pain Scale used: Numeric (1 - 10) - Nausea Vomiting Nausea Vomiting: Not Present - Hydration Hydration: Ice chips, Has not voided - Discharge PostOp Status: Transfer Patient to floor
[2018-05-14] MEDS: *HR* Enoxaparin 40 MG/0.4 ML SYRINGE SQ SCH (05:01)
[2018-05-14] MEDS: Insulin LISPRO 300 UNITS/3 ML VIAL SQ SCH ×4 (05:03→18:30)
[2018-05-14 05:16] LABS: Basophils % 0.2 %; Eosinophils % 0.2 %; Hematocrit 38.1 % (37.5-50.1); Hemoglobin 12.7 g/dL (12.9-16.9); Immature Granulocytes % 0.3 % (0-4); Immature Platelets 2.9 % (1.1-6.1); Lymphocytes # 0.8 K/mcL (0.6-4.6); Lymphocytes % 12.8 %; Mean Corpuscular HGB Conc 33.3 g/dL (31.6-35.5); Mean Corpuscular Hemoglobin 27.8 pg (28.0-33.3); Mean Corpuscular Volume 83.4 fL (83.0-100.0); Mean Platelet Volume 10.1 fL (9.4-12.4); Monocytes # 0.7 K/mcL (0.0-1.3); Monocytes % 10.5 %; Neutrophils # 4.7 K/mcL (1.6-8.9); Platelet Count 207 K/mcL (140-400); Red Blood Count 4.57 M/mcL (4.19-5.50); Red Cell Distribution Width 13.6 % (11.5-14.5)
[2018-05-14 05:35] LABS: Alanine Aminotransferase > 500 Units/L (7-52); Albumin/Globulin Ratio 1.5 (1.1-2.2); Alkaline Phosphatase 98 Units/L (34-104); Aspartate Amino Transferase 281 Units/L (13-39); BUN/Creatinine Ratio 14 (6-26); Blood Urea Nitrogen 10 mg/dL (8-23); Calcium 9.2 mg/dL (8.6-10.3); Carbon Dioxide 24 mEq/L (23-29); Chloride 106 mEq/L (98-107); Globulin 2.7 g/dL (2.4-3.5); Glucose 139 mg/dL (70-105); Osmolality,Calculated 289 (280-300); Sodium 139 mEq/L (136-145); Total Protein 6.7 g/dL (6.4-8.9); eGFR For African Americans > 60 (> 60); eGFR For Non-African Americans > 60 (> 60)
--- NOTE | 2018-05-14 08:17 | Electrocardiograph Report ---
[facility] Test Date: 2018-05-12 Pat Name: Armand Woodson Department: [id number] Room: 3A56 Gender: M Hand Stitcher: : 1955 Requested By: Lino Hines Order Number: [id number] Reading MD: Param Damian Measurements Intervals [place] Rate: 82 P: 64 ID: [id number] QRS: 39 QRSD: 97 T: 37 QT: 383 QTc: 422 Interpretive Statements SINUS RHYTHM MINIMAL ST DEPRESSION [0.025+ mV ST DEPRESSION] Electronically Signed On 05-14-2018 8:15:04 EDT by Param Damian
[2018-05-14] MEDS: Aspirin Enteric Coated 81 MG Tablet PO SCH (09:24)
[2018-05-14 11:10] VITALS: BP 121/58
--- NOTE | 2018-05-14 12:23 | Internal Med Progress Note ---
Date of Encounter: 05/14/18 Time of Encounter: 12:20 - Assessment and plan (1) Common bile duct dilatation Current Visit: Yes Status: Acute Assessment and plan: CT A/P shows bile duct dilatation (1.4 cm) beginning at the level of the head of the pancreas.MRI shows mild intra and extrahepatic biliary ductal dilation to the level of the pancreatic head where there is a 2.5 cm group of cystic lesions with communication with the duct of [place]. There is an adjacent questionable area of solid hypoenhancing pancreas. This could represent multiple side branch IPMNs or a serous cystadenoma, though findings remain suspicious for small adenocarcinoma causing mass-effect on the ducts. s/p ERCP with biliary stenting in last 24hrs. will be referred for surgery at [facility] for likely whipple's procedure. (2) Elevated liver enzymes Current Visit: Yes Status: Acute Assessment and plan: supportive care. Monitor daily LFTs (3) Diabetes mellitus type II, controlled Current Visit: Yes Status: Acute Assessment and plan: Continue insulin, monitor fingersticks Qualifiers: Diabetes mellitus snf insulin use: unspecified rodent exterminator insulin use status Qualified Code(s): E11.9 - Type 2 diabetes mellitus without complications (4) Abdominal pain Current Visit: Yes Status: Acute Assessment and plan: Pain control as needed Qualifiers: Abdominal location: generalized Qualified Code(s): R10.84 - Generalized abdominal pain (5) DVT prophylaxis Current Visit: Yes Status: Acute Assessment and plan: Lovenox - Time Spent With Patient Total time spent is greater than 50% in coordination of care (as documented) at patient's floor/unit and/or counseling patient: - Subjective Interval history: No acute events overnight - Constitutional Vitals: Temp Pulse Resp BP Pulse Ox 98.0 F 65 16 121/58 98 05/14/18 11:08 05/14/18 11:08 05/14/18 11:08 05/14/18 11:08 05/14/18 11:08 General appearance: Present: A&O X 3, no acute distress - Head Head exam: Present: atraumatic, normocephalic - Eye Eye exam: Present: PERRL, scleral icterus, conjuntiva pink, sclera anicteric Pupils: Present: PERRL - Neck Neck exam general surgery: Present: supple, trachea midline. Absent: lymphadenopathy - Respiratory Respiratory exam: Present: CTAB. Absent: accessory muscle use, rales, rhonchi, wheezes - Cardiovascular Cardiovascular exam: Present: RRR, +S1, +S2. Absent: diastolic murmur, gallop, rubs, systolic murmur - GI/Abdominal GI/Abdominal exam: Present: normal bowel sounds, soft, no peritoneal signs. Absent: distended, tenderness - Extremities Exam Extremities exam: Present: warm, radial pulses palpable and symmetrical. Absent : calf tenderness, cyanotic, pedal edema - Neurological Exam Neurological exam: Present: CN II-XII intact, oriented X3, no focal deficits. Absent: pronater drift, facial droop, speech deficit - Skin Skin exam: Present: dry, intact Internal Medicine: Result - Labs CBC & Chem 7: 05/14/18 04:53 05/14/18 04:53 Labs: Short CBC 05/14/18 Range/Units 04:53 WBC 6.2 (4.3-11.1) K/mcL Hgb 12.7 L (12.9-16.9) g/dL Hct 38.1 (37.5-50.1) % Plt Count 207 (140-400) K/mcL Neutrophils # 4.7 (1.6-8.9) K/mcL BMP 05/14/18 04:53 Sodium 139 Potassium 4.0 Chloride 106 Carbon Dioxide 24 BUN 10 Creatinine 0.72 Glucose 139 H Calcium 9.2 Liver Function 05/14/18 Range/Units 04:53 Total Bilirubin 4.0 H (0.3-1.0) mg/dL AST 281 H (13-39) Units/L ALT > 500 H (7-52) Units/L Alkaline Phosphatase 98 (34-104) Units/L Albumin 4.0 (3.5-5.7) g/dL - Impressions Impressions Cath/Invasive Procedure 05/13/18 14:41 IMPRESSION: Intraoperative fluoroscopy provided. Please refer to the procedure report for further details. D/ / Jozef Guillen MD / Jozef Guillen MD Interpreting Provider: Jozef Guillen MD Consult Discharge Plan - Plan Referrals: Pantera Salas MD [Primary Care Provider] - 05/21/18 1:15 pm Prescriptions: OxyCODONE Immed Rel [Roxicodone 5 MG] 2.5 mg PO Q6HR PRN 7 Days #20 tablet PRN Reason: Pain
--- NOTE | 2018-05-14 12:36 | Gastroenterology Progress Note ---
<Luaro Campbell - Last Filed: 05/14/18 12:34> Date of Encounter: 05/14/18 Time of Encounter: 11:10 - Assessment and plan (1) Common bile duct dilatation Status: Acute Assessment and plan: CT A/P shows bile duct dilatation (1.4 cm) beginning at the level of the head of the pancreas. MRI shows mild intra and extrahepatic biliary ductal dilation to the level of the pancreatic head where there is a 2.5 cm group of cystic lesions with communication with the duct of [place]. There is an adjacent questionable area of solid hypoenhancing pancreas. This could represent multiple side branch IPMNs or a serous cystadenoma, though findings remain suspicious for small adenocarcinoma causing mass-effect on the ducts. EUS/ERCP completed yesterday per Dr. Horn. Advance to clear liquid diet. Will be referred to surgery at [facility] for possible Whipple procedure. (2) Elevated liver enzymes Status: Acute Assessment and plan: Improving. Secondary to biliary duct dilation. On admission TB 7.9, AST 323, ALT >500, and alk phos 124. Today, TB 4, AST 281, ALT >500, alk phos 98. Continue to monitor hepatic panel daily. - Time Spent With Patient Total time spent is greater than 50% in coordination of care (as documented) at patient's floor/unit and/or counseling patient: - Subjective Interval history: Pt resting in bed with no acute complaints at this time. Jaundice has improved. - Constitutional Vitals: Temp Pulse Resp BP Pulse Ox 98.0 F 65 16 121/58 98 05/14/18 11:08 05/14/18 11:08 05/14/18 11:08 05/14/18 11:08 05/14/18 11:08 General appearance: Present: cooperative, A&O X 3, no acute distress, answers questions appropriately - Head Head exam: Present: atraumatic, normocephalic - Eye Eye exam: Present: scleral icterus - ENT ENT exam: Present: mucous membranes moist - Neck Neck exam general surgery: Present: normal inspection, trachea midline - Respiratory Respiratory exam: Present: CTAB. Absent: rales, rhonchi, wheezes - Cardiovascular Cardiovascular exam: Present: RRR, +S1, +S2 - GI/Abdominal GI/Abdominal exam: Present: soft, no peritoneal signs. Absent: distended, firm , guarding, tenderness - Rectal Rectal exam: Present: deferred - Extremities Exam Extremities exam: Present: warm - Neurological Exam Neurological exam: Present: no focal deficits - Psychiatric Psychiatric exam: Present: normal affect, normal mood - Skin Skin exam: Present: dry, intact, normal color, warm Results - Labs CBC & Chem 7: 05/14/18 04:53 05/14/18 04:53 Labs: Last Result Calcium 9.2 mg/dL (8.6-10.3) 05/14/18 04:53 Triglycerides 110 mg/dL (< 150) 05/13/18 05:37 Entire Visit Hgb 12.7 g/dL (12.9-16.9) L 05/14/18 04:53 Hct 38.1 % (37.5-50.1) 05/14/18 04:53 Total Bilirubin 4.0 mg/dL (0.3-1.0) H 05/14/18 04:53 AST 281 Units/L (13-39) H 05/14/18 04:53 ALT > 500 Units/L (7-52) H 05/14/18 04:53 Lipase 199 Units/L (11-82) H 05/12/18 11:47 - Impressions Impressions Cath/Invasive Procedure 05/13/18 14:41 IMPRESSION: Intraoperative fluoroscopy provided. Please refer to the procedure report for further details. D/ / Jozef Guillen MD / Jozef Guillen MD Interpreting Provider: Jozef Guillen MD Consult Discharge Plan - Plan Referrals: Pantera Salas MD [Primary Care Provider] - 05/21/18 1:15 pm Prescriptions: OxyCODONE Immed Rel [Roxicodone 5 MG] 2.5 mg PO Q6HR PRN 7 Days #20 tablet PRN Reason: Pain <Gul,Marleny - Last Filed: 05/20/18 08:11> Date of Encounter: 05/14/18 Time of Encounter: 13:00 - Time Spent With Patient Total time spent is greater than 50% in coordination of care (as documented) at patient's floor/unit and/or counseling patient: - Constitutional Vitals: Temp Pulse Resp BP Pulse Ox 98.0 F 65 16 121/58 98 05/14/18 11:08 05/14/18 11:08 05/14/18 11:08 05/14/18 11:08 05/14/18 11:08 Results - Labs CBC & Chem 7: 05/14/18 04:53 05/14/18 04:53 Labs: Last Result Calcium 9.2 mg/dL (8.6-10.3) 05/14/18 04:53 Triglycerides 110 mg/dL (< 150) 05/13/18 05:37 Entire Visit Hgb 12.7 g/dL (12.9-16.9) L 05/14/18 04:53 Hct 38.1 % (37.5-50.1) 05/14/18 04:53 Total Bilirubin 4.0 mg/dL (0.3-1.0) H 05/14/18 04:53 AST 281 Units/L (13-39) H 05/14/18 04:53 ALT > 500 Units/L (7-52) H 05/14/18 04:53 Lipase 199 Units/L (11-82) H 05/12/18 11:47 CA 19-9 Antigen 234 U/mL (0-37) H 05/12/18 11:47 - Attending Attestation I have personally performed a face to face evaluation on this patient. I have reviewed and agree with the care plan. History and Exam by me shows: Pt seen. has jaundice. Cystic lesion in the head of the pancreas. Recommendation EUS and ERCP procedures including risks discussed with the patient
--- NOTE | 2018-05-14 12:57 | Discharge Summary ---
Orders not resulted at time of discharge: Pending orders 05/13/18 15:23 Surgical Pathology [PTH] Routine 05/15/18 04:00 CBC [Complete Blood Count] [HEME] AM 0400 Comprehensive Metabolic Panel AM 04005/16/18 04:00 CBC [Complete Blood Count] [HEME] AM 0400 05/17/18 04:00 CBC [Complete Blood Count] [HEME] AM 0400 05/18/18 04:00 CBC [Complete Blood Count] [HEME] AM 0400 05/19/18 04:00 CBC [Complete Blood Count] [HEME] AM 0400 Date of Encounter: 05/14/18 Time of Encounter: 13:00 - Discharge Diagnosis (1) Common bile duct dilatation Priority: Primary Status: Acute Assessment and Plan: 62 year old male Diet controlled diabetes, hyperlipidemia, and HTN. Pt stated about 3 weeks ago he developed R flank pain. Reports that pain spontaneously resolved. Since then after eating he has developed bloating, abdominal discomfort, and acid reflux. Stated the next day he noticed his urine turned a tea color so he drank lots of water. His urine became light yellow but was unusually bright. Stated he also developed diarrhea and stools changed from brown to adrian and noted jaundice. A CT A/P was done showing bile duct dilatation (1.4 cm) beginning at the level of the head of the pancreas. MRI shows mild intra and extrahepatic biliary ductal dilation to the level of the pancreatic head where there is a 2.5 cm group of cystic lesions with communication with the duct of [place]. There was an adjacent questionable area of solid hypoenhancing pancreas. This could represent multiple side branch IPMNs or a serous cystadenoma, though findings remain suspicious for small adenocarcinoma causing mass-effect on the ducts. He was seen by GI and assessed with common bile duct dilation. He had an ERCP with biliary stenting done. He will be referred for surgery at [facility] for likely whipple's procedure.This will be arranged by Dr. Horn. He was discharged once he was tolerating his diet. 35minutes was spent discharging this patient (2) Elevated liver enzymes Priority: Secondary Status: Acute Assessment and Plan: supportive care with fluids. 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 Woodson is a 62 year old male - Time Spent with Patient Total time spent providing and/or coordinating discharge services: - Discharge Medications Prescriptions: OxyCODONE Immed Rel [Roxicodone 5 MG] 2.5 mg PO Q6HR PRN 7 Days #20 tablet PRN Reason: Pain Home Medications: Aspirin Enteric Coated [Aspirin EC] 81 mg PO DAILY 05/12/18 [History] Atorvastatin Calcium [Lipitor] 20 mg PO HS 05/12/18 [History] Garlic [Odorless Garlic] 1,250 mg PO DAILY 05/12/18 [History] Lisinopril [Zestril] 5 mg PO DAILY 05/12/18 [History] [place]-3/Dha/Epa/Fish Oil [Fish Oil 1,000 mg Softgel] 1 cap PO DAILY 05/12/18 [ History] Tadalafil [Cialis] 5 mg PO DAILY 05/12/18 [History] Tamsulosin [Flomax] 0.4 mg PO DAILY 05/12/18 [History] Ubidecarenone [Coq10] 50 mg PO DAILY 05/12/18 [History] OxyCODONE Immed Rel [Roxicodone 5 MG] 2.5 mg PO Q6HR PRN 7 Days #20 tablet 05/14 [Rx] Allergies/Adverse Reactions: 3 Allergy/AdvReac Type Severity Reaction Status Date / Time No Known Allergies Allergy Verified 05/12/18 11:17 Date of admission: 05/12/18 13:59 Primary care physician: Pantera Salas MD Consults: 05/12/18 15:46 Consult to Nutrition [CONS] Routine Comment: Consulting Provider: NUTRITION Reason for Dietary Consult: MST Score - Constitutional Vitals: Temp Pulse Resp BP Pulse Ox 98.0 F 65 16 121/58 98 05/14/18 11:08 05/14/18 11:08 05/14/18 11:08 05/14/18 11:08 05/14/18 11:08 General appearance: Present: A&O X 3, no acute distress - Patient Status Disposition: Home, Self-Care - Discharge Instructions Follow Up With: Pantera Salas MD [Primary Care Provider] - 05/21/18 1:15 pm
== END 2018-05-14 18:54 | disposition home or self-care (01) | DRG 445 ==
LOC: EMEROO 11:12 → 3ANU 13:59
PROVIDERS: ADMIT Family Medicine; ATTEND Family Medicine
PROC: ENDOEUS (2018-05-13 13:30)